=== PATIENT | male | born 1985 | race Two or more races ===

== ENCOUNTER → 2025-01-28 | Outpatient (CLI) | payer OTHER, SELFPAY ==
--- NOTE | 2025-01-28 10:28 | XR_ITS ---
Examination: Lumbar spine, 5 views Technique: Lumbar spine AP, lateral, coned lateral lower lumbar spine, bilateral obliques 5 views Exam date and time: 09/30/2024 1106 hours INDICATIONS: Back injury August 2024 with persistent lower back pain. FINDINGS: Adequate alignment lumbar vertebral bodies No lumbar fracture Mild lumbar spondylosis No spondylolisthesis Mild disc narrowing L4-L5, L5-S1 IMPRESSION: No lumbar fracture
== END | disposition home or self-care (01) ==
PROVIDERS: Referring Provider Physician Assistant; Visit Provider Physician Assistant
DX: M54.50 Low back pain, unspecified (principal); S33.5XXS Sprain of ligaments of lumbar spine, sequela; X58.XXXS Exposure to other specified factors, sequela
CPT/HCPCS: 72110

== ENCOUNTER → 2025-02-16 | Outpatient (CLI) | payer BC, SELFPAY ==
--- NOTE | 2025-02-16 09:19 | XR_ITS ---
Examination: Cervical spine 4 views TECHNIQUE: AP, lateral, swimmer's lateral, coned AP odontoid cervical spine 4 views Date and time: February 16, 2025 1007 hours INDICATIONS: Neck pain beginning 4 months ago. FINDINGS: Adequate alignment cervical vertebral bodies. No cervical fracture. Intact odontoid. Moderate degenerative disc disease C5-C6 IMPRESSION: Moderate degenerative disc disease C5-C6
== END | disposition home or self-care (01) ==
LOC: CDIM 09:03
PROVIDERS: PCP Family Medicine; Referring Provider Chiropractor; Visit Provider Chiropractor
DX: M50.322 Other cervical disc degeneration at C5-C6 level (principal)
CPT/HCPCS: 72040